=== PATIENT | female | born 2005 | race Two or more races ===

== ENCOUNTER 2024-09-23 15:02 | Emergency (ER) | payer OTHER, SELFPAY ==
[2024-09-23 15:05] VITALS: BP 109/76; PULSE 100; RESP 16; TEMP 36.5; O2SAT 98; BMI 24.8
--- NOTE | 2024-09-23 15:23 | CRLHL7_ITS ---
For Patients: As a result of the Century Cures Act, medical imaging exams and procedure reports are released immediately into your electronic medical record. You may view this report before your referring provider. If you have questions, please contact your health care provider. INDICATION: Heavy bleeding TECHNIQUE: Ultrasound pelvis transabdominal and transvaginal for better assessment or to better visualize the endometrium. Real-time sonographic images with spectral and color Doppler imaging of the ovaries were obtained. COMPARISON: None. FINDINGS: Uterus: 7 x 3.5 x 3.3 cm. Normal echotexture of the myometrium. No masses. Endometrium: Transvaginal imaging was performed to better evaluate the endometrium. Endometrial thickness measures 21.7 mm at the fundus with a 2.2 x 1.9 x 2.3 centimeter hyperechoic region. There is suggestion of active bleeding near the uterine fundus, but no evidence of hypervascularity. Right ovary 3.1 x 1.2 x 2 centimeters. Left ovary is not visualized due to bowel gas. No ovarian or adnexal masses. Normal arterial and venous blood flow is demonstrated in both ovaries. Cul-de-sac: Trace free fluid. IMPRESSION: Within the endometrial canal there is a hyperechoic region measuring 2.2 x 1.9 x 2.3 centimeters with evidence of active bleeding around the edges, likely representing a hematoma. There is no evidence of internal vascularity. Dictated by Lien Gibson MD @ 09/23/2024 5:07:32 PM (Electronically Signed)
--- NOTE | 2024-09-23 15:31 | ED_ITS ---
HPI - Female Genitourinary General Date Seen: 09/23/24 Chief complaint: Vaginal Bleeding Stated complaint: Heavy bleeding for 10+ days Time Seen by Provider: 09/23/24 15:03 Source: patient Mode of arrival: ambulatory Limitations: no limitations History of Present Illness HPI Narrative: Patient is a 19-year-old female presenting to the emergency department for vaginal bleeding. States she is on a control and has irregular periods. Is usually every 2-3 months she states. Her period started about 10 days ago and over the past 4 days has been heavy flow. States she seems to go to at least a pad every hour sometimes up to 2. She states she currently has on a pad and using a tampon and is still saturating. States her. Symptoms likely last long like this far never this much bleeding. Is having some pelvic cramping. States she is not . Denies lightheadedness, fevers, chills, chest pain, shortness of breath, abdominal pain, abdominal pain, diarrhea, dysuria, dizz iness. No other concerns noted. Related Data Home Medications ?Medication ?Instructions ?Recorded ?Confirmed Lexapro 09/23/24 Seasonale (91) 09/23/24 Previous Rx's ?Medication ?Instructions ?Recorded ibuprofen 600 mg tablet 600 mg PO QID 3 days #12 tabs 09/23/24 iron,carbonyl 65 mg-vitamin C 125 1 tab PO DAILY #30 tabs 09/23/24 mg tablet,delayed release (Vitron-C) norethindrone acetate 5 mg tablet 5 mg PO TID #90 tabs 09/23/24 Allergies Allergy/AdvReac Type Severity Reaction Status Date / Time No Known Drug Allergies Allergy Verified 09/23/24 15:15 Review of Systems Status of ROS: Reports: 10 or more systems reviewed and unremarkable except as noted in History and below PFSH PFSH Social History Smoking Status: Never smoker How often do you have a drink containing alcohol: never AUDIT-C Alcohol total score: 0 Non-prescribed substance use: denies use Exam Narrative: Exam Narrative: Const: Well-nourished, Well-developed, in no distress Eyes: PERRL, no conjunctival injection, and symmetrical lids HENT: Atraumatic external nose and ears. Moist mucous membranes. Neck: Symmetric, trachea midline, No thyromegaly. CVS: RRR, No murmurs or gallops. Peripheral pulses 2+ and equal in all extremities RESP: Unlabored respiratory effort. Clear to auscultation bilaterally. GI: Nontender/Nondistended, No rebound or guarding. : Large amounts of blood and blood clots within the vaginal canal MSK:Extremities w/o deformity, Normal Active ROM Skin: Warm, Dry. No rashes or lesions. Neuro: Normal Muscle tone, No focal neurological deficits. Psych: Awake, Alert, & Oriented x3. Appropriate mood and affect. Const: Vital Signs, click to edit/add: Vital Signs - 24 hr 09/23/24 15:05 Temperature 97.7 F Pulse Rate [Pulse Oximeter] 100 Respiratory Rate 16 Blood Pressure [Ri ght Upper Arm] 109/76 Pulse Oximetry 98 Oxygen Delivery Me thod Room Air Course Vital Signs Vital signs: Initial Vital Signs Temperature 97.7 F 09/23/24 15:05 Temperature Source Temporal Artery Scan 09/23/24 15:05 Pulse Rate 100 09/23/24 15:05 Respiratory Rate 16 09/23/24 15:05 Blood Pressure 109/76 09/23/24 15:05 Blood Pressure Mean 87 09/23/24 15:05 Blood Pressure Position Sitting 09/23/24 15:05 Pulse Oximetry 98 09/23/24 15:05 Oxygen Delivery Method Room Air 09/23/24 15:05 Vital Signs Temperature 97.7 F 09/23/24 15:05 Pulse Rate 100 09/23/24 15:05 Respiratory Rate 16 09/23/24 15:05 Blood Pressure 109/76 09/23/24 15:05 Pulse Oximetry 98 09/23/24 15:05 Oxygen Delivery Method Room Air 09/23/24 15:05 Temperature 97.7 F 09/23/24 15:05 Pulse Rate 100 09/23/24 15:05 Respiratory Rate 16 09/23/24 15:05 Blood Pressure 109/76 09/23/24 15:05 Pulse Oximetry 98 09/23/24 15:05 Oxygen Delivery Method Room Air 09/23/24 15:05 MDM - Female Genitourinary MDM Narrative Medical decision making narrative: Patient is a 19-year-old female presenting to the emergency department for vaginal bleeding. Will check a CBC, BMP, test and do a ultrasound. Hemoglobin came back at 8.4. She states her baseline is around 12 or 13. Rest her labs showed no concerning findings. She is not currently . The ul trasound shows a likely active bleeding hematoma or possible fibroid within her uterus. Patient's vital signs are stable. I did speak to the on-call OB, Dr. Cm. I informed her of the patient's current vital signs along with over findings. she recommends that we start the patient on iron supplements, ibuprofen 600 mg t.i.d. for 3 days and norethindrone 5 mg t.i.d. and to give 90 tabs could she will need to be on it for a while. She wants the patient follow- up with her clinic this week for likely outpatient procedure. Also states she can continue to take her home control. I went and spoke to the patient about this plan. She is agreeable. I informed her to return for worsening lightheadedness or any other concerning symptoms. Lab Data Labs: Lab Results 09/23/24 Range/Units 15:45 WBC 7.20 (4.50-11.00) K/uL RBC 2.98 L (4.00-5.20) m/uL Hgb 8.4 L (12.0-16.0) gm/dL Hct 25.4 L (33.0-51.0) % MCV 85 (80-100) fL MCH 28 (26-34) pg MCHC 33 (32-36) gm/dL RDW Coeff of Gabe 12.7 (11.5-15.5) % Plt Count 197 (140-440) K/uL Neut % (Auto) 60.9 (42.0-72.0) % Lymph % (Auto) 32.6 (20-44) % Lane % (Auto) 5.7 (0.0-11.0) % Eos % (Auto) 0.4 (0.0-7.0) % Baso % (Auto) 0.3 (0.0-3.0) % Neut # (Auto) 4.38 (1.7-7.0) K/uL Lymph # (Auto) 2.35 (0.90-2.90) K/uL Lane # (Auto) 0.40 (0.00-0.90) K/UL Eos # (Auto) 0.03 (0.00-0.50) K/uL Baso # (Auto) 0.02 (0.00-0.30) K/uL Abs Immat Gran (auto) 0.01 (0.00-0.30) K/uL Imm/Tot Granulo (auto) 0.1 % Sodium 137 (135-149) mmol/L Potassium 3.7 (3.6-5.1) mmol/L Chloride 106 (96-114) mmol/L Carbon Dioxide 25 (20-32) mmol/L Anion Gap 6 L (7-15) mEq/L BUN 6 (5-24) mg/dL Creatinine 0.5 (0.5-1.5) mg/dL Estimated Creat Clear 147.23 Estimated GFR 137 ml/min Glucose 89 (60-115) mg/dL Calcium 8.3 L (8.4-10.6) mg/dL HCG, Qual Negative (Negative) Imaging Data Transvaginal ultrasound: Attestation: I have reviewed the pertinent imaging results. Radiologist's impression: Within the endometrial canal there is a hyperechoic region measuring 2.2 x 1.9 x 2.3 centimeters with evidence of active bleeding around the edges, likely representing a hematoma. There is no evidence of internal vascularity. Dictated by Lien Gibson MD @ 09/23/2024 5:07:32 PM Discharge Plan Discharge Clinical Impression: Vaginal bleeding Patient Disposition: Home, Self-Care Condition: Stable Instructions: Abnormal (Dysfunctional) Uterine Bleeding (ED) Additional Instructions: Continue to take your home control. Take norethindrone 5 mg 3 times a day. Take ibuprofen 600 mg 4 times a day for the next 3 days. Also take the prescribed iron supplement stop taking your over the counter. Follow-up with the [facility] as soon as possible. Call them at [phone]. Tell them you were told you need to have an appointment this week. He started feeling very lightheaded, short of breath, weak or any other concerning symptoms return for re-evaluation. Prescriptions: New norethindrone acetate 5 mg tablet 5 mg PO TID Qty: 90 0RF ibuprofen 600 mg tablet 600 mg PO QID 3 Days Qty: 12 0RF Vitron-C 65 mg iron- 125 mg tablet,delayed release (DR/EC) 1 tab PO DAILY Qty: 30 0RF No Action Seasonale (91) Lexapro Follow Up/Referrals: Provider,Not a Local [Primary Care Provider] - Stand Alone Forms: The Language [employer] Info Instructions
--- OUTSIDE RECORDS SUMMARY | 2024-09-23 15:46 | XMS_ITS | Encounter Summary ---
Author Organization [facility] Address [address] [address] Care Team Providers Care Proofreader Name Role Phone Freeman Sagastume M.D. Unavailable Polina Knox M.D. Unavailable [phone] Loreta Hernandez Unavailable Heaven Ortiz M.D. Unavailable [phone] Heaven Ortiz M.D. Primary Care Provi bella Jade Boudreaux M.D. Unavailable Encounter Details Date Type Department Care Team (Late st Contact Info) Description 05/03/2024 [facility] Patient Message [facility] [address] [place], [place] [id number] Heaven Ortiz M.D. 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 Reason: persistent abdominal pain History: as above. TECHNIQUE: Contrast enhanced CT of abdomen and pelvis was performed with administration of 90 ml IV omnipaque 350 - 0 ml discarded. Contrast Omni 350/water 900 ml was administered orally. COMPARISON: No prior CT. Abdominal ultrasound 04/19/2024 FINDINGS: ABDOMEN: LUNG BASES: No significant abnormality noted LIVER, BILIARY TRACT: No significant abnormality noted. Gallbladder unremarkable. Absent biliary dilatation. Patent vasculature. Liver is 18.3 cm craniocaudad dimension SPLEEN: 8.6 cm craniocaudad dimension. PANCREAS: No significant abnormality noted ADRENAL GLANDS: No significant abnormality noted KIDNEYS, URETERS: Subcentimeter spherical hypodense lesion lower pole left kidney too small to characterize probably a cyst. Absent hydronephrosis. RETROPERITONEUM, LYMPH NODES: No significant abnormality noted. CALCIFICATIONS IN ABDOMINAL AORTA AND ITS BRANCHES: None BOWEL, MESENTERY: Absent dilated small bowel to indicate obstruction. Feces filled nondilated large bowel. Absent pneumoperitoneum or ascites. Normal air-filled nondilated appendix identified. BONES, SOFT TISSUES: Pars defect of L5. Scoliosis lumbar spine convex to the left OTHER: No significant abnormality noted PELVIS: UTERUS, ADNEXA: No significant abnormality noted BLADDER underdistended or slightly thick-walled bladder question bowel, but absent fat stranding. LYMPH NODES: No significant abnormality noted BOWEL, MESENTERY: As above BONES, SOFT TISSUES: As above OTHER: No significant abnormality noted IMPRESSION: Mild bladder thickening may be due to underdistention, however correlation with urinalysis may be pursued to evaluate for cystitis. Otherwise no acute intra-abdominal pathology. Report Electronically Signed: 05/09/2024 9:53 AM Lui Marin M.D. I personally reviewed the Images and/or procedure with the Resident/Fellow and agree with this report. Report Electronically Signed: 05/09/2024 9:07 PM Charis Tavera MD Procedure Note Charis Tavera M.D. - 05/09/2024 CT UPPER ABD AND PELVIS W CLINICAL INFORMATION: Female, 19 years. Reason: persistent abdominal painHistory: as above. TECHNIQUE: Contrast enhanced CT of abdomen and pelvis was performed withadministration of 90 ml IV omnipaque 350 - 0 ml discarded. Contrast Omni 350/water 900 mlwas administered orally. COMPARISON: No prior CT. Abdominal ultrasound 04/19/2024 FINDINGS: ABDOMEN: LUNG BASES: No significant abnormality noted LIVER, BILIARY TRACT: No significant abnormality noted. Gallbladderunremarkable. Absent biliary dilatation. Patent vasculature. Liver is 18.3 cm craniocaudaddimension SPLEEN: 8.6 cm craniocaudad dimension. PANCREAS: No significant abnormality noted ADRENAL GLANDS: No significant abnormality noted KIDNEYS, URETERS: Subcentimeter spherical hypodense lesion lower pole leftkidney too small to characterize probably a cyst. Absent hydronephrosis. RETROPERITONEUM, LYMPH NODES: No significant abnormality noted. CALCIFICATIONS IN ABDOMINAL AORTA AND ITS BRANCHES: None BOWEL, MESENTERY: Absent dilated small bowel to indicate obstruction.Feces filled nondilated large bowel. Absent pneumoperitoneum or ascites. Normalair-filled nondilated appendix identified. BONES, SOFT TISSUES: Pars defect of L5. Scoliosis lumbar spine convex tothe left OTHER: No significant abnormality noted PELVIS: UTERUS, ADNEXA: No significant abnormality noted BLADDER underdistended or slightly thick-walled bladder question bowel,but absent fat stranding. LYMPH NODES: No significant abnormality noted BOWEL, MESENTERY: As above BONES, SOFT TISSUES: As above OTHER: No significant abnormality noted IMPRESSION: Mild bladder thickening may be due to underdistention, however correlationwith urinalysis may be pursued to evaluate for cystitis. Otherwise no acuteintra-abdominal pathology. Report Electronically Signed: 05/09/2024 9:53 AM Lui Marin M.D. I personally reviewed the Images and/or procedure with the Resident/Fellowand agree with this report. Report Electronically Signed: 05/09/2024 9:07 PM Charis Tavera MD Result [facility] Heaven Ortiz M.D. RADCT WITH CONTRAST Final Result documented in this encounter Visit Diagnoses Diagnosis Abdominal pain, right lower quadrant- Primary Abdominal pain, left lower quadrant Nausea Nausea alone Constipation, unspecified constipation type Abdominal pain, right lower quadrant Abdominal pain, left lower quadrant documented in this encounter Care Teams Proofreader Relationship Specialty Start Date End Date Heaven Ortiz M.D. [address] [place] [address] [phone] PCP - General Internal Medicine 05/03/24 Freeman Sagastume M.D. [address] [place] [address] [address] [place] [address] Referring Provider Med/Peds 04/29/16 Polina Knox M.D. [address] [place] [address] Referring Provider Med/Peds 04/30/16 Loreta Hernandez [address] [place] [address] Referring Provider 04/18/19 Heaven Ortiz M.D. [address] [place] [phone] Referring Provider Internal Medicine 04/17/24 Jade Boudreaux M.D. [address] [place] [address], [place] [phone] Referring Provider Internal Medicine 05/10/24 documented as of this encounter
--- OUTSIDE RECORDS SUMMARY | 2024-09-23 15:46 | XMS_ITS | Encounter Summary ---
Author Organization [facility] Address [address] [address] Care Team Providers Care Life Skills Teacher Name Role Phone Jade Boudreaux M.D. Primary Care Provider Freeman Sagastume M.D. Unavailable Polina Knox M.D. Unavailable [phone] Loreta Hernandez Unavailable Heaven Ortiz M.D. Unavailable [phone] Heaven Ortiz M.D. Primary Care Provi bella Jade Boudreaux M.D. Unavailable [phone] Reason for Visit * Reason Onset Date Comments Medication Request 09/01/2020 Encounter Details Date Type Department Care Team (Late st Contact Info) Description 09/01/2020 Refill [facility] [address] [place] [address] Yvette Morillo M.D. 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 [address] [place] [address] [phone] PCP - General Internal Medicine 04/24/14 05/02/24 Heaven Ortiz M.D. [address] [place] [phone] PCP - General Internal Medicine 05/03/24 Freeman Sagastume M.D. [address] [place] [address] [address] [place] [address] Referring Provider Med/Peds 04/29/16 Polina Knox M.D. [address] [place] [phone] Referring Provider Med/Peds 04/30/16 Loreta Hernandez [address] [place] [address] Referring Provider 04/18/19 Heaven Ortiz M.D. [address] [place] [phone] Referring Provider Internal Medicine 04/17/24 Jade Boudreaux M.D. [address] [place] [phone] Referring Provider Internal Medicine 05/10/24 documented as of this encounter
--- OUTSIDE RECORDS SUMMARY | 2024-09-23 15:46 | XMS_ITS | Clinical Summary ---
Author Organization [facility] Address [address] [address] Care Team Providers Care Shield Installer Name Role Phone Freeman Sagastume M.D. Unavailable Polina Knox M.D. Unavailable [phone] Loreta Hernandez Unavailable Heaven Ortiz M.D. Unavailable [phone] Heaven Ortiz M.D. Primary Care Provi bella Jade Boudreaux M.D. Unavailable Allergies No known active allergies Medications * This document contains information received from the source organization and may not represent a complete record from that organization. ibuprofen (ADVIL ORAL) Take by mouth. Ac tive betamethasone valerate (LUXIQ) 0.12 % foam Apply to the affected area(s) twice daily. 100 g 1 09/02/2020 1:01 PM HOSPICE DIRECTOR 0 Active hydrocortisone 2.5% creamIndication s:Dermatitis Apply to the affected area(s) twice daily. Apply under arms once or twice a day as noted 30 g 2 01/14/2021 5:01 PM CDT 1 Active hydroquinone (LUSTRA) 4 % creamIndication s:Acanthosis nigricans Apply to the affected area(s) twice daily. Apply under arms once or twice a day as tolerated 28.35 g 2 01/14/2021 5:01 PM CDT 1 Active escitalopram oxalate (LEXAPRO) 10 mg tablet Take 1 tablet by mouth daily. 90 tablet 3 07/30/2024 11:31 AM HOSPICE DIRECTOR 4 Active omeprazole (PRILOSEC) 20 mg capsule Take 1 capsule by mouth before breakfast. 90 capsule 3 07/30/2024 11:31 AM HOSPICE DIRECTOR 4 Active ethinyl estradiol-oscar orgestrel (SEASONALE) 0.15 mg-30 mcg (91) 3MPk Take 1 tablet by mouth daily. 91 tablet 3 06/22/2024 1:55 PM CDT 4 Active Active Problems Problem Noted Date Diagnosed Date Anxiety 03/27/2021 Auditory processing disorder 02/20/2013 Overview (02/20/2013): 02/20/13 Speech /lauguage therapy once a week Keratosis pilaris 06/27/2012 Overview (06/27/2012): 06/2012 Dr. Centeno Molluscum contagiosum 06/27/2012 Overview (06/27/2012): 06/2012 Dr. Centeno Molluscum contagiosum -Viral etiology discussed with family. Natural history of condition with likelihood of spontaneous resolution over months to years reviewed. Management options of observation, destructive therapy via cryotherapy or cantharone application, or immunotherapy via intralesional carmella injections discussed. Family opts for cryotherapy. Resolved Problems Problem Noted Date Diagnosed Date Resolved Date [facility] (well child check) 04/06/201203/27 Immunizations Name Administration Dates Next Due Covid-19 Vaccine (Genmab), 1 2 Years to Adult 01/16/2021,12/30/2020 DTaP Vaccine 04/16/2008, 4,2003,05/07,2003 Dtap, Unspecified Formulatio n - External 04/16/2008,07/09/2004,2003,05/07,2003 Haemophilus Influenzae Vacci ne Type B,(HIB), PRP-OMP Conjugate 2003,2003,2003 Hep A, Unspecified Formulati on - External 04/16/2011,04/16/2008 Hep B, Unspecified Formulati on - External 2003,2003,2003 Hepatitis A Vaccine 04/16/2011,04/16/2008 Hepatitis B Vaccine, (3-Dose Series) 2003, 2003 Hib, Unspecified Formulation - External 2003,2003,2003 Human Papilloma Virus Vaccin e (Gardasil 9) 04/30/2016,04/10/2015 Human Papillomavirus Vaccine , Quadrivalent 04/24/2014 Inactivated Polio Vaccine (IPV) 04/16/20 08,2003,2003,03/13 Influenza Vaccine (FLUARIX) (6 Months to Adult) 07/30/2023,05/11/2022,08/01/2019,09/02 Influenza Vaccine (Quadrival ent) (PF), 3 Yrs-Adult 07/28/2016,07/21/2013 Measles, Mumps & Rubella (MMR) 04/16/2008,2003 MenACWY (Menveo-2) (2 months to 55 years) 08/01/2019 MenACWY-D (Menactra) (9 kartik hs or older) 08/01/2019,04/24/2014 Pneumococcal Conjugate Vaccine (PCV7) ,2003,2003,03/13 Polio, Unspecified Formulati on - External 04/16/2008,2003,2003,03/13 Tdap Vaccine 04/24/2014 Varicella Zoster Vaccine (Chickenpox) 04/06/2012 ,04/16/2004 Family History Medical History Relation Comments Asthma Brother 1 Arrhythmia Father AFib Heart Disease Father DSP-cardiomyopat hy Cancer - Melanoma Maternal Grandfather Arthritis Mother Dyslipidemia/Hypercholesterolemia Mother Rheumatoid Arthritis Mother Heart Failure Paternal Grandfather Arrhythmia Paternal Uncle AFib Cerebral Vascular Accident Neg Hx Diabetes Neg Hx Early Neg Hx Hearing Loss Neg Hx Hypertension Neg Hx Obesity Neg Hx Sickle Cell Anemia Neg Hx Vision Loss Neg Hx Relation Status Comments Brother 1 Alive Brother 2 Alive Father Alive Maternal Grandfather Mother Alive Paternal Grandfather (Age 79) Paternal Uncle Alive Social History Tobacco Use Types Packs/Day Years Used Date Smoking Tobacco: Never Smokeless Tobacco: Never Comments Unknown Sex and Gender Information Value Date Recorded Sex Assigned at Female 07/26/2023 8:03 PM HOSPICE DIRECTOR Legal Sex Female 4:26 PM HOSPICE DIRECTOR Gender Identity Female 07/26/2023 8:03 PM HOSPICE DIRECTOR Sexual Orientation Choose not to disclose 2022 8:05 PM HOSPICE DIRECTOR Last Filed Vital Signs Vital Sign Reading Time Taken Comments Blood Pressure 116/74 05/10/2024 1:22 PM CDT Pulse 90 05/10/2024 1:22 PM CDT Temperature 36.6 C (97.8 F) 05/10/2024 1:22 PM CDT Respiratory Rate 19 05/10/2024 1:22 PM CDT Oxygen Saturation 100% 05/10/2024 1:22 PM CDT Inhaled Oxygen Concentration - - Weight 66.8 kg (147 lb 3.2 oz) 05/10/2024 1:22 P M CDT Height 160 cm (5' 3) 05/10/2024 1:22 PM CDT Body Mass Index 26.08 05/10/2024 1:22 PM CDT Plan of Treatment Health Maintenance Due Date Last Done Comments CERVICAL CANCER SCREENING 2003 DEPRESSION SCREENING 2015 TDAP/TD VACCINE (5 - Td or Tdap) 04/24/2024 04/24/2014, 04/16/2008, 04/16/2008, Additional history exists COVID-19 VACCINE ( season) 2024 04/17/2022, 09/03/2021, 01/16/2021, Additional history exists INFLUENZA VACCINE (#1) 2024 , 05/11/2022, 08/01/2019, Additional history exists ZOSTER SERIES VACCINE (1 of 2) 2053 Pneumococcal Vaccine: Childhood and At-Risk Adult <65 yo Series Aged Out 04/16/2004, 2003, 2003, Additional history exists No longer eligible based on patient's age to complete this topic HPV VACCINE Completed 04/30/2016, 02/2015, 04/24/2014 HEPATITIS C SCREENING Completed 04/17/2024 HIV SCREENING Completed 04/17/2024 Procedures Procedure Name Priority Date/Time Associated Diagnosis Comments HC HEPATITIS C ANTIBODY ROUTINE 04/17/2024 2:13 PM CDT Need for hepatitis C screening test HIV AB/AG W/ REFLEX ROUTINE 04/17/2024 2 :13 PM CDT Encounter for screening for HIV from Last 3 Months or Most Recently Relevant to Health Maintenance Results * HIV AB/AG W/ REFLEX (04/17/2024 2:13 PM CDT) HIV Antigen Non-React jose Non-React jose 04/17/2024 3:13 PM CDT [facility] HIV Antibodies Non-React jose Non-React jose 04/17/2024 3:13 PM CDT [facility] HIVDUO Result Non-React jose Non-React jose 04/17/2024 3:13 PM CDT [facility] Blood VENOUS BLOOD SPECIMEN / Unknown Venipuncture / Unknown 04/17/2024 2:13 PM CDT 04/17/2024 2:27 PM CDT Heaven Ortiz M.D. LAB CHEMISTRY ORDER POLA Final Result [facility] [address] [place] [phone] * HCV C AB SCREEN WITH REFLEX TO VIRAL LOAD (04/17/2024 2:13 PM CDT) Hepatitis C Antibody Screen Non-React jose Non-React jose 04/17/2024 3:38 PM CDT [facility] Blood VENOUS BLOOD SPECIMEN / Unknown Venipuncture / Unknown 04/17/2024 2:13 PM CDT 04/17/2024 2:28 PM CDT Heaven Ortiz M.D. LAB CHEMISTRY ORDER POLA Final Result [facility] [address] [place] [address] from Last 3 Months or Most Recently Relevant to Health Maintenance Insurance [employer] Member Subscriber Plan / Payer (Ef fective 2016-Present) Name:Lazara Barrios Relation to Subscriber:Child Name:DENISBALJIT Date of :1965 (Home) Address: [address] [place] [address] Payer ID:[id number] (NAIC) Type:Not on file Address: [address] [address] [facility] RELEASEIFMultimedia Plus | [employer] [facility] Yugma Care Teams Shield Installer Relationship Specialty Start Date End Date Heaven Ortiz M.D. [address] [facility]/ [address] [place] [address] PCP - General Internal Medicine 05/03/24 Freeman Sagastume M.D. [address] [place] [address] [address] [place], [place] [id number] Referring Provider Med/Peds 04/29/16 Polina Knox M.D. [address] [place] [address] Referring Provider Med/Peds 04/30/16 Loreta Hernandez [address] [place] [address] Referring Provider 04/18/19 Heaven Ortiz M.D. [address] [place] [address]/[address] [phone] Referring Provider Internal Medicine 04/17/24 Jade Boudreaux M.D. [address] [place] [address]/C [address] [place] [address] Referring Provider Internal Medicine 05/10/24"
--- OUTSIDE RECORDS SUMMARY | 2024-09-23 15:46 | XMS_ITS | Encounter Summary ---
Author Organization [facility] Address [address] [address] Care Team Providers Care Jewelry Sales Associate Name Role Phone Jade Boudreaux M.D. Primary Care Provider Freeman Sagastume M.D. Unavailable Polina Knox M.D. Unavailable [phone] Loreta Hernandez Unavailable Heaven Ortiz M.D. Unavailable [phone] Heaven Ortiz M.D. Primary Care Provi bella Jade Boudreaux M.D. Unavailable [phone] Encounter Details Date Type Department Care Team (Late st Contact Info) Description 07/08/2020 Orders Only [facility] Internal Medicine & Pediatrics [address] [place] [address] Jade Boudreaux M.D. [address] [facility]/ [address] [place] [phone] Social History Tobacco Use Types Packs/Day Years Used Date Smoking Tobacco: Never Smokeless Tobacco: Never Comments Unknown Sex and Gender Information Value Date Recorded Sex Assigned at Female 07/26/2023 8:03 PM TOBACCO CONDITIONER Legal Sex Female 4:26 PM TOBACCO CONDITIONER Gender Identity Female 07/26/2023 8:03 PM TOBACCO CONDITIONER Sexual Orientation Choose not to disclose 2022 8:05 PM TOBACCO CONDITIONER documented as of this encounter Plan of Treatment Not on file documented as of this encounter Visit Diagnoses Not on filedocumented in this encounter Care Teams Jewelry Sales Associate Relationship Specialty Start Date End Date Jade Boudreaux M.D. [address] [place] [phone] PCP - General Internal Medicine 04/24/14 05/02/24 Heaven Ortiz M.D. [address] [place] [phone] PCP - General Internal Medicine 05/03/24 Freeman Sagastume M.D. [address] [place] [address] [address] [place] [address] Referring Provider Med/Peds 04/29/16 Polina Knox M.D. [address] [place] [phone] Referring Provider Med/Peds 04/30/16 Loreta Hernandez [address] [place] [address] Referring Provider 04/18/19 Heaven Ortiz M.D. [address] [place] [phone] Referring Provider Internal Medicine 04/17/24 Jade Boudreaux M.D. [address] [phone] Referring Provider Internal Medicine 05/10/24 documented as of this encounter
--- OUTSIDE RECORDS SUMMARY | 2024-09-23 15:46 | XMS_ITS | Encounter Summary ---
Author Organization [facility] Address [address] [address] Care Team Providers Care Chemical Educator Name Role Phone Jade Boudreaux M.D. Primary Care Provider Freeman Sagastume M.D. Unavailable Polina Knox M.D. Unavailable [phone] Loreta Hernandez Unavailable Heaven Ortiz M.D. Unavailable [phone] Heaven Ortiz M.D. Primary Care Provi bella aJde Boudreaux M.D. Unavailable [phone] Encounter Details Date Type Department Care Team (Late st Contact Info) Description 03/03/2022 [facility] Patient Message [facility] Internal Medicine & Pediatrics [address] [place] [address] Jade Boudreaux M.D. [address] [facility] M/[address] [address] Lexapro Social History Tobacco Use Types Packs/Day Years Used Date Smoking Tobacco: Never Smokeless Tobacco: Never Comments Unknown Sex and Gender Information Value Date Recorded Sex Assigned at Female 07/26/2023 8:03 PM HANDICAPPED TEACHER Legal Sex Female 4:26 PM HANDICAPPED TEACHER Gender Identity Female 07/26/2023 8:03 PM HANDICAPPED TEACHER Sexual Orientation Choose not to disclose 2022 8:05 PM HANDICAPPED TEACHER documented as of this encounter Plan of Treatment Not on file documented as of this encounter Visit Diagnoses Not on filedocumented in this encounter Care Teams Chemical Educator Relationship Specialty Start Date End Date Jade Boudreaux M.D. [address] [place] [phone] PCP - General Internal Medicine 04/24/14 05/02/24 Heaven Ortiz M.D. [address] [place] [phone] PCP - General Internal Medicine 05/03/24 Freeman Sagastume M.D. [address] [facility] [address] [place] [address] Referring Provider Med/Peds 04/29/16 Polina Knxo M.D. [address] [place] [address] Referring Provider Med/Peds 04/30/16 Loreta Hernandez [address] [place] [address] Referring Provider 04/18/19 Heaven Ortiz M.D. [address] [place] [phone] Referring Provider Internal Medicine 04/17/24 Jade Boudreaux M.D. [address] [place], [place] [address] [place] [phone] Referring Provider Internal Medicine 05/10/24 documented as of this encounter
--- OUTSIDE RECORDS SUMMARY | 2024-09-23 15:46 | XMS_ITS | Encounter Summary ---
Author Organization [facility] Address [address] [address] Care Team Providers Care Formulator Compounder Name Role Phone Jade Boudreaux M.D. Primary Care Provider Freeman Sagastume M.D. Unavailable Polina Knox M.D. Unavailable [phone] Loreta Hernandez Unavailable Heaven Ortiz M.D. Unavailable [phone] Heaven Ortiz M.D. Primary Care Provi bella Jade Boudreaux M.D. Unavailable [phone] Reason for Visit * Reason Onset Date Comments Medication Request 11/29/2019 Encounter Details Date Type Department Care Team (Late st Contact Info) Description 11/29/2019 Refill [facility] [address] [place] [address] Yvette Morillo M.D. Medication Request Social History Tobacco Use Types Packs/Day Years Used Date Smoking Tobacco: Never Smokeless Tobacco: Never Comments Unknown Sex and Gender Information Value Date Recorded Sex Assigned at Female 07/26/2023 8:03 PM STEAM ENGINEER Legal Sex Female 4:26 PM STEAM ENGINEER Gender Identity Female 07/26/2023 8:03 PM STEAM ENGINEER Sexual Orientation Choose not to disclose 2022 8:05 PM STEAM ENGINEER documented as of this encounter Plan of Treatment Not on file documented as of this encounter Visit Diagnoses Not on filedocumented in this encounter Care Teams Formulator Compounder Relationship Specialty Start Date End Date Jade Boudreaux M.D. [address] [place] [phone] PCP - General Internal Medicine 04/24/14 05/02/24 Heaven Ortiz M.D. [address] [place] [phone] PCP - General Internal Medicine 05/03/24 Freeman Sagastume M.D. [address] [place] [address] [address] [place] [address] Referring Provider Med/Peds 04/29/16 Polina Knox M.D. [address] [place] [address] Referring Provider Med/Peds 04/30/16 Loreta Hernandez [address] [place] [address] Referring Provider 04/18/19 Heaven Ortiz M.D. [address] [place] [phone] Referring Provider Internal Medicine 04/17/24 Jade Boudreaux M.D. [address] [place] [phone] Referring Provider Internal Medicine 05/10/24 documented as of this encounter
--- OUTSIDE RECORDS SUMMARY | 2024-09-23 15:46 | XMS_ITS | Encounter Summary ---
Author Organization [facility] Address [address] [address] Care Team Providers Care Bailer Operators Supervisor Name Role Phone Jade Boudreaux M.D. Primary Care Provider Freeman Sagastume M.D. Unavailable Polina Knox M.D. Unavailable [phone] Loreta Hernandez Unavailable Heaven Ortiz M.D. Unavailable [phone] Heaven Ortiz M.D. Primary Care Provi bella Jade Boudreaux M.D. Unavailable Encounter Details Date Type Department Care Team (Late st Contact Info) Description 04/19/2024 [facility] Patient Message [facility] Primary Care Group [address] [facility] [place] [address] Heaven Ortiz M.D. [address] [facility] M/C [address] [place] [phone] Pelvic Ultrasound? Social History Tobacco Use Types Packs/Day Years Used Date Smoking Tobacco: Never Smokeless Tobacco: Never Comments Unknown Sex and Gender Information Value Date Recorded Sex Assigned at Female 07/26/2023 8:03 PM STORE TEAM LEADER Legal Sex Female 4:26 PM STORE TEAM LEADER Gender Identity Female 07/26/2023 8:03 PM STORE TEAM LEADER Sexual Orientation Choose not to disclose 2022 8:05 PM STORE TEAM LEADER documented as of this encounter Plan of Treatment Not on file documented as of this encounter Visit Diagnoses Not on filedocumented in this encounter Care Teams Bailer Operators Supervisor Relationship Specialty Start Date End Date Jade Boudreaux M.D. [address] [place] [phone] PCP - General Internal Medicine 04/24/14 05/02/24 Heaven Ortiz M.D. [address] [place] [phone] PCP - General Internal Medicine 05/03/24 Freeman Sagastume M.D. [address] [place] [address] [address] [place] [address] Referring Provider Med/Peds 04/29/16 Polina Knox M.D. [address] [place] [address] Referring Provider Med/Peds 04/30/16 Loreta Hernandez [address] [place] [address] Referring Provider 04/18/19 Heaven Ortiz M.D. [address] [place] [phone] Referring Provider Internal Medicine 04/17/24 Jade Boudreaux M.D. [address] [phone] Referring Provider Internal Medicine 05/10/24 documented as of this encounter
--- OUTSIDE RECORDS SUMMARY | 2024-09-23 15:47 | XMS_ITS | Encounter Summary ---
Author Organization [facility] Address [address] [address] Care Team Providers Care Diamond Sander Name Role Phone Jade Boudreaux M.D. Primary Care Provider Freeman Sagastume M.D. Unavailable [phone] Polina Knox M.D. Unavailable [phone] Loreta Hernandez Unavailable Heaven Ortiz M.D. Unavailable [phone] Heaven Ortiz M.D. Primary Care Provi bella Jade Boudreaux M.D. Unavailable [phone] Encounter Details Date Type Department Care Team (Late st Contact Info) Description 07/28/2016 Orders Only [facility] [address] [place] [address] Yenifer Rainey R.N. Need for prophylactic vaccination and inoculation against influenza (Primary Dx) Social History Tobacco Use Types Packs/Day Years Used Date Smoking Tobacco: Never Comments Unknown Sex and Gender Information Value Date Recorded Sex Assigned at Female 07/26/2023 8:03 PM MECHANICAL LEAD Legal Sex Female 4:26 PM MECHANICAL LEAD Gender Identity Female 07/26/2023 8:03 PM MECHANICAL LEAD Sexual Orientation Choose not to disclose 2022 8:05 PM MECHANICAL LEAD documented as of this encounter Plan of Treatment Not on file documented as of this encounter Visit Diagnoses Diagnosis Need for prophylactic vaccination and inoculation against influenza- Primary documented in this encounter Care Teams Diamond Sander Relationship Specialty Start Date End Date Jade Boudreaux M.D. [address] [place] [phone] PCP - General Internal Medicine 04/24/14 05/02/24 Heaven Ortiz M.D. [address] [place] [phone] PCP - General Internal Medicine 05/03/24 Freeman Sagastume M.D. [address] [place] [address] [address] [place] [address] Referring Provider Med/Peds 04/29/16 Polina Knox M.D. [address] [place] [address] Referring Provider Med/Peds 04/30/16 Loreta Hernandez [address], [place] [address] Referring Provider 04/18/19 Heaven Ortiz M.D. [address] [place] [phone] Referring Provider Internal Medicine 04/17/24 Jade Boudreaux M.D. [address] [place] [phone] Referring Provider Internal Medicine 05/10/24 documented as of this encounter
[2024-09-23 16:13] LABS: Basophils Absolute Auto 0.02 K/uL (0.00-0.30); Basophils Percent Auto 0.3 % (0.0-3.0); Eosinophils Absolute Auto 0.03 K/uL (0.00-0.50); Eosinophils Percent Auto 0.4 % (0.0-7.0); Hematocrit 25.4 % (33.0-51.0); Hemoglobin* 8.4 gm/dL (12.0-16.0); Immature Granulocytes Abs Auto 0.01 K/uL (0.00-0.30); Immature Granulocytes Pct Auto 0.1 %; Lymphocytes Absolute Auto 2.35 K/uL (0.90-2.90); Lymphocytes Percent Auto 32.6 % (20-44); Mean Corpuscular HGB Conc 33 gm/dL (32-36); Mean Corpuscular Hemoglobin 28 pg (26-34); Mean Corpuscular Volume 85 fL (80-100); Monocytes Percent Auto 5.7 % (0.0-11.0); Neutrophils Absolute Auto 4.38 K/uL (1.7-7.0); Neutrophils Percent Auto 60.9 % (42.0-72.0); Platelet Count* 197 K/uL (140-440); RDW Coefficient of Variation % 12.7 % (11.5-15.5); Red Blood Count 2.98 m/uL (4.00-5.20)
[2024-09-23 16:22] LABS: Slide Review Reflex No
[2024-09-23 16:29] LABS: Chloride* 106 mmol/L (96-114); Potassium* 3.7 mmol/L (3.6-5.1); Sodium* 137 mmol/L (135-149)
[2024-09-23 16:32] LABS: Anion Gap 6 mEq/L (7-15); Blood Urea Nitrogen* 6 mg/dL (5-24); Calcium* 8.3 mg/dL (8.4-10.6); Carbon Dioxide* 25 mmol/L (20-32); Creatinine* 0.5 mg/dL (0.5-1.5); Est. Creatinine Clearance* 147.23; Estimated Glomerular Filt Rate 137 ml/min; Glucose* 89 mg/dL (60-115); HCG Qualitative Serum* Negative (Negative)
[2024-09-23 17:00] VITALS: BP 109/64; PULSE 84; RESP 16; O2SAT 98
== END 2024-09-23 17:53 | disposition home or self-care (01) ==
PROVIDERS: Emergency Provider Student in an Organized Health Care Education/Training Program
DX: N93.9 Abnormal uterine and vaginal bleeding, unspecified (principal)
CPT/HCPCS: 36415; 76830; 80048; 84703; 85025; 99283; 99284

== ENCOUNTER 2024-09-23 18:54 | Emergency (ER) | payer OTHER, SELFPAY ==
[2024-09-23] VITALS (12 sets, daily range): BP systolic 95–116; BP diastolic 52–72; PULSE 82–130; RESP 16–18; TEMP 36.3; O2SAT 99–100
--- OUTSIDE RECORDS SUMMARY | 2024-09-23 19:17 | XMS_ITS | Encounter Summary ---
Author Organization [facility] Address [address] [address] Care Team Providers Care Security Analyst Name Role Phone Jade Boudreaux M.D. Primary Care Provider Freeman Sagastume M.D. Unavailable Polina Knox M.D. Unavailable [phone] Loreta Hernandez Unavailable Heaven Ortiz M.D. Unavailable [phone] Heaven Ortiz M.D. Primary Care Provi bella Jade Boudreaux M.D. Unavailable [phone] Encounter Details Date Type Department Care Team (Late st Contact Info) Description 04/19/[address] [facility] [address] [facility] [place] [address] Heaven Ortiz M.D. [address] [facility] M/C [address] [place] [phone] Pelvic Ultrasound? Social History Tobacco Use Types Packs/Day Years Used Date Smoking Tobacco: Never Smokeless Tobacco: Never Comments Unknown Sex and Gender Information Value Date Recorded Sex Assigned at Female 07/26/2023 8:03 PM INCOME TAX EXPERT Legal Sex Female 4:26 PM INCOME TAX EXPERT Gender Identity Female 07/26/2023 8:03 PM INCOME TAX EXPERT Sexual Orientation Choose not to disclose 2022 8:05 PM INCOME TAX EXPERT documented as of this encounter Plan of Treatment Not on file documented as of this encounter Visit Diagnoses Not on filedocumented in this encounter Care Teams Security Analyst Relationship Specialty Start Date End Date Jade Boudreaux M.D. [address] [place] [phone] PCP - General Internal Medicine 04/24/14 05/02/24 Heaven Ortiz M.D. [address] [place] [phone] PCP - General Internal Medicine 05/03/24 Freeman Sagastume M.D. [address] [place] [address] [address] [place] [address] Referring Provider Med/Peds 04/29/16 Polina Knox M.D. [address] [place] [address] Referring Provider Med/Peds 04/30/16 Loreta Hernandez [address] [place] [address] Referring Provider 04/18/19 Heaven Ortiz M.D. [address] [place] [phone] Referring Provider Internal Medicine 04/17/24 Jade Boudreaux M.D. [address] [phone] Referring Provider Internal Medicine 05/10/24 documented as of this encounter
--- OUTSIDE RECORDS SUMMARY | 2024-09-23 19:17 | XMS_ITS | Clinical Summary ---
Author Organization [facility] Address [address] [address] Care Team Providers Care Zipper Trimmer Name Role Phone Freeman Sagastume M.D. Unavailable Polina Knox M.D. Unavailable [phone] Loreta Hernandez Unavailable Heaven Ortiz M.D. Unavailable [phone] Heaven Ortiz M.D. Primary Care Provi bella [...] daily. 100 g 1 09/02/2020 1:01 PM MANAGER SCHEDULING 0 Active hydrocortisone 2.5% creamIndication s:Dermatitis Apply [...] daily. 90 tablet 3 07/30/2024 11:31 AM MANAGER SCHEDULING 4 Active omeprazole (PRILOSEC) 20 mg capsule Take 1 capsule by mouth before breakfast. 90 capsule 3 07/30/2024 11:31 AM MANAGER SCHEDULING 4 Active ethinyl estradiol-oscar orgestrel (SEASONALE) 0.15 [...] Problem Noted Date Diagnosed Date Resolved Date [facility] (well child check) 04/06/201203/27 Immunizations Name Administration Dates Next Due Covid-19 Vaccine (Shoppilot), 1 2 Years to Adult 01/16/2021,12/30/2020 DTaP [...] Sex Assigned at Female 07/26/2023 8:03 PM MANAGER SCHEDULING Legal Sex Female 4:26 PM MANAGER SCHEDULING Gender Identity Female 07/26/2023 8:03 PM MANAGER SCHEDULING Sexual Orientation Choose not to disclose 2022 8:05 PM MANAGER SCHEDULING Last Filed Vital Signs Vital Sign Reading [...] jose Non-React jose 04/17/2024 3:13 PM CDT [facility] HIV Antibodies Non-React jose Non-React jose 04/17/2024 3:13 PM CDT [facility] HIVDUO Result Non-React jose Non-React jose 04/17/2024 3:13 PM CDT [facility] Blood VENOUS BLOOD SPECIMEN / Unknown Venipuncture / Unknown 04/17/2024 2:13 PM CDT 04/17/2024 2:27 PM CDT Heaven Ortiz M.D. LAB CHEMISTRY ORDER POLA Final Result [facility] [address] [place] [phone] * HCV C AB SCREEN WITH REFLEX TO VIRAL LOAD (04/17/2024 2:13 PM CDT) Hepatitis C Antibody Screen Non-React jose Non-React jose 04/17/2024 3:38 PM CDT [facility] Blood VENOUS BLOOD SPECIMEN / Unknown Venipuncture / Unknown 04/17/2024 2:13 PM CDT 04/17/2024 2:28 PM CDT Heaven Ortiz M.D. LAB CHEMISTRY ORDER POLA Final Result [facility] [address] [place] [address] from Last 3 Months or Most Recently Relevant to Health Maintenance Insurance [employer] Member Subscriber Plan / Payer (Ef fective 2016-Present) Name:Lazara Barrios Relation to Subscriber:Child Name:DENISBALJIT Date of :1965 (Home) Address: [address] [place] [address] Payer ID:[id number] (NAIC) Type:Not on file Address: [address] [address] [facility] [employer] Care Teams Zipper Trimmer Relationship Specialty Start Date End Date Heaven Ortiz M.D. [address] [facility]/ [address] [place] [address] PCP - General Internal Medicine 05/03/24 Freeman Sagastume M.D. [address] [place] [address] [address] [place], [place] [address] Referring Provider Med/Peds 04/29/16 Polina Knox M.D. [address] [place] [address] Referring Provider Med/Peds 04/30/16 Loreta Hernandez [address] [place] [address] Referring Provider 04/18/19 Heaven Ortiz M.D. [address] [place] [address]/[address] [phone] Referring Provider Internal Medicine 04/17/24 Jade Boudreaux M.D. [address] [place] [address]/[address] [place] [address] Referring Provider Internal Medicine 05/10/24
--- OUTSIDE RECORDS SUMMARY | 2024-09-23 19:17 | XMS_ITS | Encounter Summary ---
Author Organization [facility] Address [address] [address] Care Team Providers Care Booking Officer Name Role Phone Freeman Sagastume M.D. Unavailable Polina Knox M.D. Unavailable [phone] Loreta Hernandez Unavailable Heaven Ortiz M.D. Unavailable [phone] Heaven Ortiz M.D. Primary Care Provi bella Jade Boudreaux M.D. Unavailable Encounter Details Date Type Department Care Team (Late st Contact Info) Description 05/03/2024 [facility] Patient Message [facility] [address] [place], [place] [phone] Heaven Ortiz M.D. [address] [facility] M/[address] [place] [address] Persisting Abdominal Pain Social History Tobacco Use Types Packs/Day Years Used Date Smoking Tobacco: Never Smokeless Tobacco: Never Comments Unknown Sex and Gender Information Value Date Recorded Sex Assigned at Female 07/26/2023 8:03 PM MANAGER SOFTWARE DEVELOPMENT Legal Sex Female 4:26 PM MANAGER SOFTWARE DEVELOPMENT Gender Identity Female 07/26/2023 8:03 PM MANAGER SOFTWARE DEVELOPMENT Sexual Orientation Choose not to disclose 2022 8:05 PM MANAGER SOFTWARE DEVELOPMENT documented as of this encounter Plan of [...] 05/09/2024 9:07 PM Charis Tavera MD Result [facility] Heaven Ortiz M.D. RADCT WITH CONTRAST Final Result documented in this encounter Visit Diagnoses Diagnosis Abdominal pain, right lower quadrant- Primary Abdominal pain, left lower quadrant Nausea Nausea alone Constipation, unspecified constipation type Abdominal pain, right lower quadrant Abdominal pain, left lower quadrant documented in this encounter Care Teams Booking Officer Relationship Specialty Start Date End Date Heaven Ortiz M.D. [address] [place] [phone] PCP - General Internal Medicine 05/03/24 Freeman Sagastume M.D. [address] [place] [address] [address] [place] [address] Referring Provider Med/Peds 04/29/16 Polina Knox M.D. [address] [place] [address] Referring Provider Med/Peds 04/30/16 Loreta Hernandez [address] [place] [address] Referring Provider 04/18/19 Heaven Ortiz M.D. [address] [place] [phone] Referring Provider Internal Medicine 04/17/24 Jade Boudreaux M.D. [address] [place] [address], [place] [phone] Referring Provider Internal Medicine 05/10/24 documented as of this encounter
--- OUTSIDE RECORDS SUMMARY | 2024-09-23 19:18 | XMS_ITS | Encounter Summary ---
Author Organization [facility] Address [address] [address] Care Team Providers Care Gas Operator Name Role Phone Jade Boudreaux M.D. Primary Care Provider Freeman Sagastume M.D. Unavailable Polina Knox M.D. Unavailable [phone] Loreta Hernandez Unavailable Heaven Ortiz M.D. Unavailable [phone] Heaven Ortiz M.D. Primary Care Provi bella Jade Boudreaux M.D. Unavailable [phone] Encounter Details Date Type Department Care Team (Late st Contact Info) Description 07/28/2016 Orders Only [facility] [address] [place] [address] Yenifer Rainey R.N. Need for prophylactic vaccination and inoculation against influenza (Primary Dx) Social History Tobacco Use Types Packs/Day Years Used Date Smoking Tobacco: Never Comments Unknown Sex and Gender Information Value Date Recorded Sex Assigned at Female 07/26/2023 8:03 PM TRAVELING OPERATOR Legal Sex Female 4:26 PM TRAVELING OPERATOR Gender Identity Female 07/26/2023 8:03 PM TRAVELING OPERATOR Sexual Orientation Choose not to disclose 2022 8:05 PM TRAVELING OPERATOR documented as of this encounter Plan of Treatment Not on file documented as of this encounter Visit Diagnoses Diagnosis Need for prophylactic vaccination and inoculation against influenza- Primary documented in this encounter Care Teams Gas Operator Relationship Specialty Start Date End Date Jade Boudreaux M.D. [address] [place] [phone] PCP - General Internal Medicine 04/24/14 05/02/24 Heaven Ortiz M.D. [address] [place] [phone] PCP - General Internal Medicine 05/03/24 Freeman Sagastume M.D. [address] [place] [address] [address] [place] [address] Referring Provider Med/Peds 04/29/16 Polina Knox M.D. [address] [place] [address] Referring Provider Med/Peds 04/30/16 Loreta Hernandez [address], [place] [address] Referring Provider 04/18/19 Heaven Ortiz M.D. [address] [place] [phone] Referring Provider Internal Medicine 04/17/24 Jade Boudreaux M.D. [address] [place] [phone] Referring Provider Internal Medicine 05/10/24 documented as of this encounter
--- OUTSIDE RECORDS SUMMARY | 2024-09-23 19:18 | XMS_ITS | Encounter Summary ---
Author Organization [facility] Address [address] [address] Care Team Providers Care Supervisor Rides Name Role Phone Jade Boudreaux M.D. Primary Care Provider Freeman Sagastume M.D. Unavailable [phone] Polina Knox M.D. Unavailable [phone] Loreta Hernandez Unavailable Heaven Ortiz M.D. Unavailable [phone] Heaven Ortiz M.D. Primary Care Provi bella Jade Boudreaux M.D. Unavailable [phone] Reason for Visit * Reason Onset Date Comments Medication Request 09/01/2020 Encounter Details Date Type Department Care Team (Late st Contact Info) Description 09/01/2020 Refill [facility] [address] [place] [address] Yvette Morillo M.D. Medication Request Social History Tobacco Use Types Packs/Day Years Used Date Smoking Tobacco: Never Smokeless Tobacco: Never Comments Unknown Sex and Gender Information Value Date Recorded Sex Assigned at Female 07/26/2023 8:03 PM BREAKER UP Legal Sex Female 4:26 PM BREAKER UP Gender Identity Female 07/26/2023 8:03 PM BREAKER UP Sexual Orientation Choose not to disclose 2022 8:05 PM BREAKER UP documented as of this encounter Plan of Treatment Not on file documented as of this encounter Visit Diagnoses Not on filedocumented in this encounter Care Teams Supervisor Rides Relationship Specialty Start Date End Date Jade Boudreaux M.D. [address] [place] [phone] PCP - General Internal Medicine 04/24/14 05/02/24 Heaven Ortiz M.D. [address] [place] [phone] PCP - General Internal Medicine 05/03/24 Freeman Sagastume M.D. [address] [place] [address] [address] [place] [address] Referring Provider Med/Peds 04/29/16 Polina Knox M.D. [address] [place] [address] Referring Provider Med/Peds 04/30/16 Loreta Hernandez [address] [place] [address] Referring Provider 04/18/19 Heaven Ortiz M.D. [address] [place] [phone] Referring Provider Internal Medicine 04/17/24 Jade Boudreaux M.D. [address] [place] [phone] Referring Provider Internal Medicine 05/10/24 documented as of this encounter
--- OUTSIDE RECORDS SUMMARY | 2024-09-23 19:18 | XMS_ITS | Encounter Summary ---
Author Organization [facility] Address [address] [address] Care Team Providers Care Elderly Sitter Name Role Phone Jade Boudreaux M.D. Primary Care Provider Freeman Sagastume M.D. Unavailable [phone] Polina Knox M.D. Unavailable [phone] Loreta Hernandez Unavailable Heaven Ortiz M.D. Unavailable [phone] Heaven Ortiz M.D. Primary Care Provi bella Jade Boudreaux M.D. Unavailable [phone] Encounter Details Date Type Department Care Team (Late st Contact Info) Description 07/08/[address] [facility] [address] [place] [address] Jade Boudreaux M.D. [address] [facility]/ [address] [place] [phone] Social History Tobacco Use Types Packs/Day Years Used Date Smoking Tobacco: Never Smokeless Tobacco: Never Comments Unknown Sex and Gender Information Value Date Recorded Sex Assigned at Female 07/26/2023 8:03 PM MINE SAFETY MANAGER Legal Sex Female 4:26 PM MINE SAFETY MANAGER Gender Identity Female 07/26/2023 8:03 PM MINE SAFETY MANAGER Sexual Orientation Choose not to disclose 2022 8:05 PM MINE SAFETY MANAGER documented as of this encounter Plan of Treatment Not on file documented as of this encounter Visit Diagnoses Not on filedocumented in this encounter Care Teams Elderly Sitter Relationship Specialty Start Date End Date Jade Boudreaux M.D. [address] [place] [phone] PCP - General Internal Medicine 04/24/14 05/02/24 Heaven Ortiz M.D. [address] [place] [phone] PCP - General Internal Medicine 05/03/24 Freeman Sagastume M.D. [address] [place] [address] [address] [place] [address] Referring Provider Med/Peds 04/29/16 Polina Knox M.D. [address] [place] [phone] Referring Provider Med/Peds 04/30/16 Loreta Hernandez [address] [place] [address] Referring Provider 04/18/19 Heaven Ortiz M.D. [address] [place] [phone] Referring Provider Internal Medicine 04/17/24 Jade Boudreaux M.D. [address] [phone] Referring Provider Internal Medicine 05/10/24 documented as of this encounter
--- OUTSIDE RECORDS SUMMARY | 2024-09-23 19:18 | XMS_ITS | Encounter Summary ---
Author Organization [facility] Address [address] [address] Care Team Providers Care Blending Line Attendant Name Role Phone Jade Boudreaux M.D. Primary Care Provider Freeman Sagastume M.D. Unavailable Polina Knox M.D. Unavailable [phone] Loreta Hernandez Unavailable Heaven Ortiz M.D. Unavailable [phone] Heaven Ortiz M.D. Primary Care Provi bella Jade Boudreaux M.D. Unavailable [phone] Reason for Visit * Reason Onset Date Comments Medication Request 11/29/2019 Encounter Details Date Type Department Care Team (Late st Contact Info) Description 11/29/2019 Refill [facility] [address] [place] [address] Yvette Morillo M.D. Medication Request Social History Tobacco Use Types Packs/Day Years Used Date Smoking Tobacco: Never Smokeless Tobacco: Never Comments Unknown Sex and Gender Information Value Date Recorded Sex Assigned at Female 07/26/2023 8:03 PM HYDROGENATION STILL OPERATOR Legal Sex Female 4:26 PM HYDROGENATION STILL OPERATOR Gender Identity Female 07/26/2023 8:03 PM HYDROGENATION STILL OPERATOR Sexual Orientation Choose not to disclose 2022 8:05 PM HYDROGENATION STILL OPERATOR documented as of this encounter Plan of Treatment Not on file documented as of this encounter Visit Diagnoses Not on filedocumented in this encounter Care Teams Blending Line Attendant Relationship Specialty Start Date End Date Jade Boudreaux M.D. [address] [place] [phone] PCP - General Internal Medicine 04/24/14 05/02/24 Heaven Ortiz M.D. [address] [place] [phone] PCP - General Internal Medicine 05/03/24 Freeman Sagastume M.D. [address] [place] [address] [address] [place] [address] Referring Provider Med/Peds 04/29/16 Polina Knox M.D. [address] [place] [address] Referring Provider Med/Peds 04/30/16 Loreta Hernandez [address] [place] [address] Referring Provider 04/18/19 Heaven Ortiz M.D. [address] [place] [phone] Referring Provider Internal Medicine 04/17/24 Jade Boudreaux M.D. [address] [place] [phone] Referring Provider Internal Medicine 05/10/24 documented as of this encounter
--- OUTSIDE RECORDS SUMMARY | 2024-09-23 19:18 | XMS_ITS | Encounter Summary ---
Author Organization [facility] Address [address] [address] Care Team Providers Care Pipefitter Helper Name Role Phone Jade Boudreaux M.D. Primary Care Provider Freeman Sagastume M.D. Unavailable [phone] Polina Knox M.D. Unavailable [phone] Loreta Hernandez Unavailable Heaven Ortiz M.D. Unavailable [phone] Heaven Ortiz M.D. Primary Care Provi bella Jade Boudreaux M.D. Unavailable [phone] Encounter Details Date Type Department Care Team (Late st Contact Info) Description 03/03/2022 [facility] Patient Message [facility] [address] [place] [address] Jade Boudreaux M.D. [address] [facility] [address] [phone] Lexapro Social History Tobacco Use Types Packs/Day Years Used Date Smoking Tobacco: Never Smokeless Tobacco: Never Comments Unknown Sex and Gender Information Value Date Recorded Sex Assigned at Female 07/26/2023 8:03 PM INSURANCE FOLLOW UP REPRESENTATIVE Legal Sex Female 4:26 PM INSURANCE FOLLOW UP REPRESENTATIVE Gender Identity Female 07/26/2023 8:03 PM INSURANCE FOLLOW UP REPRESENTATIVE Sexual Orientation Choose not to disclose 2022 8:05 PM INSURANCE FOLLOW UP REPRESENTATIVE documented as of this encounter Plan of Treatment Not on file documented as of this encounter Visit Diagnoses Not on filedocumented in this encounter Care Teams Pipefitter Helper Relationship Specialty Start Date End Date Jade Boudreaux M.D. [address] [place] [phone] PCP - General Internal Medicine 04/24/14 05/02/24 Heaven Ortiz M.D. [address] [place] [phone] PCP - General Internal Medicine 05/03/24 Freeman Sagastume M.D. [address] [facility] [address] [place] [address] Referring Provider Med/Peds 04/29/16 Polina Knox M.D. [address] [place] [address] Referring Provider Med/Peds 04/30/16 Loreta Hernandez [address] [place] [address] Referring Provider 04/18/19 Heaven Ortiz M.D. [address] [place] [phone] Referring Provider Internal Medicine 04/17/24 Jade Boudreaux M.D. [address] [place], [place] [address] [place] [phone] Referring Provider Internal Medicine 05/10/24 documented as of this encounter
--- NOTE | 2024-09-23 19:20 | ED_ITS ---
HPI - Female Genitourinary General Chief complaint: Vaginal Bleeding <Daniel Roberts DO - Last Filed: 09/23/24 20:11> Stated complaint: return same symptoms <Daniel Roberts DO - Last Filed: 09/23/24 20:11> Time Seen by Provider: 09/23/24 18:55 <Daniel Roberts DO - Last Filed: 09/23/24 20:11> Source: patient <Daniel Roberts DO - Last Filed: 09/23/24 20:11> Mode of arrival: wheelchair <Daniel Roberts DO - Last Filed: 09/23/24 20:11> Limitations: no limitations <Daniel Roberts DO - Last Filed: 09/23/24 20:11> History of Present Illness HPI Narrative: Patient is a 19-year-old female who was just seen here in the emergency department for large amount of vaginal bleeding and discharged per OB recommendations. She was feeling well at time of discharge and when out to eat afterwards. She states she suddenly got very nauseated and vomited a couple juno es and then felt lightheaded and dizzy. She states she has sit down on the floor because she thought she was going to pass out. She then came straight to the emergency department with her family and was brought back via wheelchair. She was laid back down in bed and she feels like she is getting better now. States when she did leave she passed some more clots in her dorm room. No other concerns noted. <Daniel Roberts DO - Last Filed: 09/23/24 20:11> Related Data Home medications: Home Medications ?Medication ?Instructions ?Recorded ?Confirmed Lexapro 09/23/24 Seasonale (91) 09/23/24 Previous Rx's ?Medication ?Instructions ?Recorded ibuprofen 600 mg tablet 600 mg PO QID 3 days #12 tabs 09/23/24 iron,carbonyl 65 mg-vitamin C 125 1 tab PO DAILY #30 tabs 09/23/24 mg tablet,delayed release (Vitron-C) norethindrone acetate 5 mg tablet 5 mg PO TID #90 tabs 09/23/24 <Daniel Roberts DO - Last Filed: 09/23/24 20:11> Allergies/Adverse reactions: Allergies Allergy/AdvReac Type Severity Reaction Status Date / Time No Known Drug Allergies Allergy Verified 09/23/24 15:15 <Daniel Roberts DO - Last Filed: 09/23/24 20:11> Review of Systems Status of ROS: Reports: 10 or more systems reviewed and unremarkable except as noted in History and below <Daniel Roberts DO - Last Filed: 09/23/24 20:11> PFSH PFSH Social History: Social History Smoking Status: Never smoker How often do you have a drink containing alcohol: never AUDIT-C Alcohol total score: 0 Non-prescribed substance use: denies use <Daniel Roberts DO - Last Filed: 09/23/24 20:11> Exam Narrative: Exam Narrative: Const: Well-nourished, Well-developed, in mild distress Eyes: PERRL, no conjunctival injection, and symmetrical lids HENT: Atraumatic external nose and ears. Moist mucous membranes. Neck: Symmetric, trachea midline, No thyromegaly. CVS: RRR, No murmurs or gallops. Peripheral pulses 2+ and equal in all extremities RESP: Unlabored respiratory effort. Clear to auscultation bilaterally. GI: Nontender/Nondistended, No rebound or guarding. MSK:Extremities w/o deformity, Normal Active ROM Skin: Warm, Dry. No rashes or lesions. Neuro: Normal Muscle tone, No focal neurological deficits. Psych: Awake, Alert, & Oriented x3. Appropriate mood and affect. <Daniel Roberts DO - Last Filed: 09/23/24 20:11> Const: Vital Signs, click to edit/add: Vital Signs - 24 hr 09/23/24 19:02 09/23/24 20:14 09/23/24 20:27 Temperature 97.4 F L Pulse Rate 84 Pulse Rate [Pulse Oximeter] 130 H Respiratory Rate 18 16 Blood Pressure Blood Pressure [Ri ght Upper Arm] 95/64 Pulse Oximetry 100 100 100 Oxygen Delivery Me thod Room Air 09/23/24 22:12 09/23/24 22:15 09/23/24 22:24 Temperature Pulse Rate 82 89 86 Pulse Rate [Pulse Oximeter] Respiratory Rate Blood Pressure 96/67 Blood Pressure [Ri ght Upper Arm] Pulse Oximetry 100 99 100 Oxygen Delivery Me thod 09/23/24 22:34 09/23/24 22:47 09/23/24 22:48 Temperature Pulse Rate 102 H 97 84 Pulse Rate [Pulse Oximeter] Respiratory Rate Blood Pressure 110/62 Blood Pressure [Ri ght Upper Arm] Pulse Oximetry 100 100 100 Oxygen Delivery Me thod 09/23/24 23:00 09/23/24 23:02 09/23/24 23:41 Temperature Pulse Rate 83 85 84 Pulse Rate [Pulse Oximeter] Respiratory Rate 16 Blood Pressure 116/72 112/52 L Blood Pressure [Ri ght Upper Arm] Pulse Oximetry 100 100 100 Oxygen Delivery Me thod 09/24/24 00:01 09/24/24 00:01 09/24/24 00:01 Temperature Pulse Rate 99 99 99 Pulse Rate [Pulse Oximeter] Respiratory Rate 16 Blood Pressure 117/66 117/66 117/66 Blood Pressure [Ri ght Upper Arm] Pulse Oximetry 100 100 100 Oxygen Delivery Me thod 09/24/24 00:31 09/24/24 01:02 09/24/24 01:15 Temperature Pulse Rate 92 93 Pulse Rate [Pulse Oximeter] Respiratory Rate 16 16 Blood Pressure 114/61 117/79 Blood Pressure [Ri ght Upper Arm] Pulse Oximetry 98 100 Oxygen Delivery Me thod <Daniel Roberts, DO - Last Filed: 09/23/24 20:11> Vital Signs, click to edit/add: Vital Signs - 24 hr 09/23/24 19:02 09/23/24 20:14 09/23/24 20:27 Temperature 97.4 F L Pulse Rate 84 Pulse Rate [Pulse Oximeter] 130 H Respiratory Rate 18 16 Blood Pressure Blood Pressure [Ri ght Upper Arm] 95/64 Pulse Oximetry 100 100 100 Oxygen Delivery Me thod Room Air 09/23/24 22:12 09/23/24 22:15 09/23/24 22:24 Temperature Pulse Rate 82 89 86 Pulse Rate [Pulse Oximeter] Respiratory Rate Blood Pressure 96/67 Blood Pressure [Ri ght Upper Arm] Pulse Oximetry 100 99 100 Oxygen Delivery Me thod 09/23/24 22:34 09/23/24 22:47 09/23/24 22:48 Temperature Pulse Rate 102 H 97 84 Pulse Rate [Pulse Oximeter] Respiratory Rate Blood Pressure 110/62 Blood Pressure [Ri ght Upper Arm] Pulse Oximetry 100 100 100 Oxygen Delivery Me thod 09/23/24 23:00 09/23/24 23:02 09/23/24 23:41 Temperature Pulse Rate 83 85 84 Pulse Rate [Pulse Oximeter] Respiratory Rate 16 Blood Pressure 116/72 112/52 L Blood Pressure [Ri ght Upper Arm] Pulse Oximetry 100 100 100 Oxygen Delivery Me thod 09/24/24 00:01 09/24/24 00:01 09/24/24 00:01 Temperature Pulse Rate 99 99 99 Pulse Rate [Pulse Oximeter] Respiratory Rate 16 Blood Pressure 117/66 117/66 117/66 Blood Pressure [Ri ght Upper Arm] Pulse Oximetry 100 100 100 Oxygen Delivery Me thod 09/24/24 00:31 09/24/24 01:02 09/24/24 01:15 Temperature Pulse Rate 92 93 Pulse Rate [Pulse Oximeter] Respiratory Rate 16 16 Blood Pressure 114/61 117/79 Blood Pressure [Ri ght Upper Arm] Pulse Oximetry 98 100 Oxygen Delivery Me thod <Huseyin Ruelas MD - Last Filed: 09/24/24 01:42> Course Course ED Course: Patient feels a lot better, her bleeding has really stop, she has been up going to the bathroom we have given her 2 L of fluid. She does not feel dizzy when she walks around. She is however dropped her hemoglobin to 7.1. Her mother is flown in from [place], is a internal medicine physician. Her mother tells me she has had this once before, when she was in [place], and she has iron deficiency anemia, and bleeding. After discussion with them, she is accepting of of 1 unit of packed red blood cells, I think this will significantly help her, and make her feel a lot better. We will give her little bit of bumper room as they plan to stay overnight in [place], and then go to [place] tomorrow. I did speak to RAHEL Ortiz again and updated her on the progress here at 1:15 am , she really does not want to do an operation while she is bleeding, but think she needs to be seen later this week in [place] I informed Mom about this. She also garbage pick up man her medications tomorrow, and started on the oral contraceptive. If she has worsening vaginal bleed, orthostatics symptoms, or other concerns she will come back here to the emergency room. We will give her 1 unit of packed red blood cells over 1 hour. <Huseiyn Ruelas MD - Last Filed: 09/24/24 01:42> Vital Signs Vital signs: Initial Vital Signs Temperature 97.4 F L 09/23/24 19:02 Temperature Source Temporal Artery Scan 09/23/24 19:02 Pulse Rate 130 H 09/23/24 19:02 Pulse Rhythm Regular 09/23/24 19:02 Respiratory Rate 18 09/23/24 19:02 Blood Pressure 95/64 09/23/24 19:02 Blood Pressure Mean 74 09/23/24 19:02 Blood Pressure Position Sitting 09/23/24 19:02 Pulse Oximetry 100 09/23/24 19:02 Oxygen Delivery Method Room Air 09/23/24 19:02 Vital Signs Temperature 97.4 F L 09/23/24 19:02 Pulse Rate 130 H 09/23/24 19:02 Respiratory Rate 18 09/23/24 19:02 Blood Pressure 95/64 09/23/24 19:02 Pulse Oximetry 100 09/23/24 19:02 Oxygen Delivery Method Room Air 09/23/24 19:02 Temperature 97.4 F L 09/23/24 19:02 Pulse Rate 93 09/24/24 01:15 Respiratory Rate 16 09/24/24 01:02 Blood Pressure 117/79 09/24/24 01:02 Pulse Oximetry 100 09/24/24 01:15 Oxygen Delivery Method Room Air 09/23/24 19:02 <Daniel Roberts DO - Last Filed: 09/23/24 20:11> Initial Vital Signs Temperature 97.4 F L 09/23/24 19:02 Temperature Source Temporal Artery Scan 09/23/24 19:02 Pulse Rate 130 H 09/23/24 19:02 Pulse Rhythm Regular 09/23/24 19:02 Respiratory Rate 18 09/23/24 19:02 Blood Pressure 95/64 09/23/24 19:02 Blood Pressure Mean 74 09/23/24 19:02 Blood Pressure Position Sitting 09/23/24 19:02 Pulse Oximetry 100 09/23/24 19:02 Oxygen Delivery Method Room Air 09/23/24 19:02 Vital Signs Temperature 97.4 F L 09/23/24 19:02 Pulse Rate 130 H 09/23/24 19:02 Respiratory Rate 18 09/23/24 19:02 Blood Pressure 95/64 09/23/24 19:02 Pulse Oximetry 100 09/23/24 19:02 Oxygen Delivery Method Room Air 09/23/24 19:02 Temperature 97.4 F L 09/23/24 19:02 Pulse Rate 93 09/24/24 01:15 Respiratory Rate 16 09/24/24 01:02 Blood Pressure 117/79 09/24/24 01:02 Pulse Oximetry 100 09/24/24 01:15 Oxygen Delivery Method Room Air 09/23/24 19:02 <Huseyin Ruelas MD - Last Filed: 09/24/24 01:42> Medications Administered Medications: Generic Name Dose Route Start Last Admin Trade Name Freq PRN Reason Stop Dose Admin Acetaminophen 1,000 mg 09/24/24 00:46 09/24/24 01:10 Acetaminophen 500 Mg Tablet PO 09/24/24 00:47 1,000 mg ONCE ONE Administration Diphenhydramine HCl 25 - 50 mg 09/24/24 00:46 09/24/24 01:11 Diphenhydramine 25 Mg Capsule PO 09/24/24 00:47 25 mg ONCE ONE Administration Medroxyprogesterone Acetate 30 mg 09/24/24 09:00 09/23/24 22:39 Medroxyprogesterone 5 Mg Tablet PO 30 mg DAILY DYLLAN Administration Discontinued Medications Generic Name Dose Route Start Last Admin Trade Name Freq PRN Reason Stop Dose Admin Lactated Ringer's 1,000 mls @ 1,000 mls/hr 09/23/24 19:40 09/23/24 21:15 Lactated Ringers 1000 Ml IV 09/23/24 20:39 Infused .Q1H ONE Infusion Lactated Ringer's 1,000 mls @ 1,000 mls/hr 09/23/24 23:04 09/23/24 23:56 Lactated Ringers 1000 Ml IV 09/24/24 00:03 Infused .Q1H ONE Infusion Lorazepam 0.5 mg 09/23/24 21:46 09/23/24 21:51 Lorazepam 2 Mg/Ml Inj IVP 09/23/24 21:47 0.5 mg ONCE ONE Administration <Daniel Roberts DO - Last Filed: 09/23/24 20:11> Generic Name Dose Route Start Last Admin Trade Name Kvng PRN Reason Stop Dose Admin Acetaminophen 1,000 mg 09/24/24 00:46 09/24/24 01:10 Acetaminophen 500 Mg Tablet PO 09/24/24 00:47 1,000 mg ONCE ONE Administration Diphenhydramine HCl 25 - 50 mg 09/24/24 00:46 09/24/24 01:11 Diphenhydramine 25 Mg Capsule PO 09/24/24 00:47 25 mg ONCE ONE Administration Medroxyprogesterone Acetate 30 mg 09/24/24 09:00 09/23/24 22:39 Medroxyprogesterone 5 Mg Tablet PO 30 mg DAILY DYLLAN Administration Discontinued Medications Generic Name Dose Route Start Last Admin Trade Name Kvng PRN Reason Stop Dose Admin Lactated Ringer's 1,000 mls @ 1,000 mls/hr 09/23/24 19:40 09/23/24 21:15 Lactated Ringers 1000 Ml IV 09/23/24 20:39 Infused .Q1H ONE Infusion Lactated Ringer's 1,000 mls @ 1,000 mls/hr 09/23/24 23:04 09/23/24 23:56 Lactated Ringers 1000 Ml IV 09/24/24 00:03 Infused .Q1H ONE Infusion Lorazepam 0.5 mg 09/23/24 21:46 09/23/24 21:51 Lorazepam 2 Mg/Ml Inj IVP 09/23/24 21:47 0.5 mg ONCE ONE Administration <Huseyin Ruelas MD - Last Filed: 09/24/24 01:42> MDM - Female Genitourinary MDM Narrative Medical decision making narrative: Patient is a 19-year-old female presenting for lightheaded and dizziness with vaginal bleeding. She was seen just a couple hours ago for the same issue but now she is feeling lightheaded and dizzy. She is feeling better laying in bed but I will order a hemoglobin and type and screen. Patient is not yet picked up her prescriptions. Her repeat hemoglobin is 8.1. When I set her up in bed she is feeling very lightheaded and dizzy. I did speak to Dr. Cm again she recommends 30 mg of Provera, L of fluids and a unit of packed red blood cells. This was ordered. Also give the patient 4 of Marita. Patient was signed out to my colleague pending re-evaluation after fluid and blood transfusions. Expected disposition this time is to discharge Prior to starting the unit of blood I spoke to her parents, who were both physicians, they state that having dizziness and nausea/vomiting is x-ray pre frequent for this patient and is not all that abnormal for her. They are hoping we could try to just give her a L fluids 1st prior to the blood to see how she is doing and if she is improved to discharge her without the blood transfusion. <Daniel Roberts, DO - Last Filed: 09/23/24 20:11> Lab Data Labs: Lab Results 09/23/24 09/24/24 Range/Units 19:21 00:03 WBC 9.44 (4.50-11.00) K/uL RBC 2.52 L (4.00-5.20) m/uL Hgb 8.1 L 7.1 L* (12.0-16.0) gm/dL Hct 21.6 L (33.0-51.0) % MCV 86 (80-100) fL MCH 28 (26-34) pg MCHC 33 (32-36) gm/dL RDW Coeff of Gabe 12.6 (11.5-15.5) % Plt Count 200 (140-440) K/uL Neut % (Auto) 86.7 H (42.0-72.0) % Lymph % (Auto) 11.8 L (20-44) % [place] % (Auto) 1.2 (0.0-11.0) % Eos % (Auto) 0.0 (0.0-7.0) % Baso % (Auto) 0.2 (0.0-3.0) % Neut # (Auto) 8.20 H (1.7-7.0) K/uL Lymph # (Auto) 1.10 (0.90-2.90) K/uL [place] # (Auto) 0.10 (0.00-0.90) K/UL Eos # (Auto) 0.00 (0.00-0.50) K/uL Baso # (Auto) 0.02 (0.00-0.30) K/uL Abs Immat Gran (auto) 0.01 (0.00-0.30) K/uL Imm/Tot Granulo (auto) 0.1 % Blood Type O Positive Antibody Screen NEGATIVE Crossmatch (AHG) See Detail <Daniel Roberts DO - Last Filed: 09/23/24 20:11> Lab Results 09/23/24 09/24/24 Range/Units 19:21 00:03 WBC 9.44 (4.50-11.00) K/uL RBC 2.52 L (4.00-5.20) m/uL Hgb 8.1 L 7.1 L* (12.0-16.0) gm/dL Hct 21.6 L (33.0-51.0) % MCV 86 (80-100) fL MCH 28 (26-34) pg MCHC 33 (32-36) gm/dL RDW Coeff of Gabe 12.6 (11.5-15.5) % Plt Count 200 (140-440) K/uL Neut % (Auto) 86.7 H (42.0-72.0) % Lymph % (Auto) 11.8 L (20-44) % [place] % (Auto) 1.2 (0.0-11.0) % Eos % (Auto) 0.0 (0.0-7.0) % Baso % (Auto) 0.2 (0.0-3.0) % Neut # (Auto) 8.20 H (1.7-7.0) K/uL Lymph # (Auto) 1.10 (0.90-2.90) K/uL [place] # (Auto) 0.10 (0.00-0.90) K/UL Eos # (Auto) 0.00 (0.00-0.50) K/uL Baso # (Auto) 0.02 (0.00-0.30) K/uL Abs Immat Gran (auto) 0.01 (0.00-0.30) K/uL Imm/Tot Granulo (auto) 0.1 % Blood Type O Positive Antibody Screen NEGATIVE Crossmatch (AHG) See Detail <Huseyin Ruelas MD - Last Filed: 09/24/24 01:42> Discharge Plan Discharge Clinical Impression: Vaginal bleeding, Dysfunctional uterine bleeding <Daniel Roberts DO - Last Filed: 09/23/24 20:11> Patient Disposition: Home, Self-Care <Daniel Roberts DO - Last Filed: 09/23/24 20:11> Condition: Improved <Daniel Roberts DO - Last Filed: 09/23/24 20:11> Instructions: Abnormal (Dysfunctional) Uterine Bleeding (ED) <Daniel Roberts DO - Last Filed: 09/23/24 20:11> Additional Instructions: Make sure to garbage pick up man your prescriptions tomorrow. Return for new or worsening symptoms. Follow up with punch out crew member this week <Daniel Roberts DO - Last Filed: 09/23/24 20:11> Activity Level: Light activity <Daniel Roberts DO - Last Filed: 09/23/24 20:11> Light activity <Huseyin Ruelas MD - Last Filed: 09/24/24 01:42> Discharge Diet: Regular <Daniel Roberts DO - Last Filed: 09/23/24 20:11> Regular <Huseyin Ruelas MD - Last Filed: 09/24/24 01:42> Prescriptions: No Action Seasonale (91) Lexapro norethindrone acetate 5 mg tablet 5 mg PO TID Qty: 90 0RF ibuprofen 600 mg tablet 600 mg PO QID 3 Days Qty: 12 0RF Vitron-C 65 mg iron- 125 mg tablet,delayed release (DR/EC) 1 tab PO DAILY Qty: 30 0RF <Daniel Roberts DO - Last Filed: 09/23/24 20:11> Follow Up/Referrals: Provider,Not a Local [Primary Care Provider] - <Daniel Roberts DO - Last Filed: 09/23/24 20:11> Stand Alone Forms: MyHealth Info Instructions <Daniel Roberts DO - Last Filed: 09/23/24 20:11>
[2024-09-23 19:28] LABS: Hemoglobin* 8.1 gm/dL (12.0-16.0)
[2024-09-23] MEDS: LACTATED RINGERS 1000 ML 1,000 ML IV ×2 (19:57→22:40)
[2024-09-23] MEDS: ONDANSETRON 2 MG/ML inj 4 MG IVP (21:15)
[2024-09-23] MEDS: LORazepam 2 MG/ML inj 0.5 MG IVP (21:51)
[2024-09-23] MEDS: MEDROXYPROGESTERONE 5 MG TABLET 30 MG PO (22:39)
[2024-09-24] VITALS (19 sets, daily range): BP systolic 97–117; BP diastolic 60–79; PULSE 73–99; RESP 16; TEMP 36.4–36.7; O2SAT 95–100
[2024-09-24 00:07] LABS: Basophils Absolute Auto 0.02 K/uL (0.00-0.30); Basophils Percent Auto 0.2 % (0.0-3.0); Hematocrit 21.6 % (33.0-51.0); Immature Granulocytes Abs Auto 0.01 K/uL (0.00-0.30); Immature Granulocytes Pct Auto 0.1 %; Lymphocytes Percent Auto 11.8 % (20-44); Mean Corpuscular HGB Conc 33 gm/dL (32-36); Mean Corpuscular Hemoglobin 28 pg (26-34); Mean Corpuscular Volume 86 fL (80-100); Monocytes Percent Auto 1.2 % (0.0-11.0); Neutrophils Percent Auto 86.7 % (42.0-72.0); Platelet Count* 200 K/uL (140-440); RDW Coefficient of Variation % 12.6 % (11.5-15.5); Red Blood Count 2.52 m/uL (4.00-5.20); White Blood Count* 9.44 K/uL (4.50-11.00)
[2024-09-24 00:10] LABS: Hemoglobin* 7.1 gm/dL (12.0-16.0); Slide Review Reflex No
[2024-09-24] MEDS: ACETAMINOPHEN 500 MG TABLET 1000 MG PO (01:10)
[2024-09-24] MEDS: diphenhydrAMINE 25 MG CAPSULE PO ×2 (01:11→02:36)
== END 2024-09-24 05:11 | disposition home or self-care (01) ==
PROVIDERS: Student in an Organized Health Care Education/Training Program; Emergency Provider Family Medicine
DX: N93.8 Other specified abnormal uterine and vaginal bleeding (principal)
CPT/HCPCS: 36415; 36430; 76830; 80048; 84703; 85018; 85025; 86850; 86900; 86901; 86922; 94761; 96374; 96375; 99283; 99284; 99291; A9270; J2060; J2405; J7120; P9016